=== PATIENT | female | born 1960 | race Two or more races ===

== ENCOUNTER 2021-05-01 08:00 | Outpatient (CLI) | payer OTHER ==
[~2021-05-01 08:00] MED LIST: ATENOLOL-CHLORT1 TA2 PO; ENALAPRIL MALEAT5 MG PO; ZOCOR20 MG PO
== END 2021-05-01 08:30 | disposition home or self-care (01) ==
LOC: PPH VACUNA 08:00
PROVIDERS: ATTEND Emergency Medicine Pediatric Emergency Medicine
DX: Z23 Encounter for immunization (principal)